=== PATIENT | female | born 1970 | race Caucasian/White ===

== ENCOUNTER 2016-12-16 14:39 | Emergency (ER) | payer MEDICARE, SELFPAY | END 2016-12-16 17:53 | disposition home or self-care (01) | LOC: ER 14:39 | DX: M76.61 Achilles tendinitis, right leg (principal); J44.9 Chronic obstructive pulmonary disease, unspecified; F31.9 Bipolar disorder, unspecified; I25.10 Atherosclerotic heart disease of native coronary artery without angina pectoris; F17.210 Nicotine dependence, cigarettes, uncomplicated; Z90.710 Acquired absence of both cervix and uterus; Z79.899 Other long term (current) drug therapy; Z88.1 Allergy status to other antibiotic agents; Z88.6 Allergy status to analgesic agent ==